=== PATIENT | female | born 1985 | race Caucasian/White ===

== ENCOUNTER 2024-03-02 09:27 | Day surgery (SDC) | payer OTHER ==
[2024-02-28 09:03] LABS: BASOPHILS # (AUTO) 0.1 X10'3 (0-0.2); BILIRUBIN,URINE NEGATIVE (Neg); CLARITY,URINE CLEAR (Clear); COLOR,URINE YELLOW (Yellow); EOSINOPHILS # (AUTO) 0.3 X10'3 (0-0.9); EOSINOPHILS % (AUTO) 4.1 % (0-6); GLUCOSE, URINE NEGATIVE (Neg); KETONES,URINE NEGATIVE (Neg); LEUKOCYTE ESTERASE ,URINE NEGATIVE (Neg); LYMPHOCYTES # (AUTO) 1.5 X10'3 (1.1-4.8); LYMPHOCYTES % (AUTO) 23.7 % (21-51); MEAN CORPUSCULAR HGB CONC 34.2 g/dL (33.0-36.5); MEAN CORPUSCULAR VOLUME 90.7 FL (78-98); MEAN PLATELET VOLUME 6.7 FL (7.4-10.4); MONOCYTES # (AUTO) 0.5 X10'3 (0-0.9); MONOCYTES % (AUTO) 7.9 % (2-12); NEUTROPHILS # (AUTO) 4.1 X10'3 (1.8-7.7); NEUTROPHILS % (AUTO) 63.3 % (42-75); NITRITES, URINE NEGATIVE (Neg); OCCULT BLOOD,URINE MODERATE (Neg); PRE OP PLATELET COUNT 371 X10'3 (140-440); PRE OP WHITE BLOOD COUNT 6.5 10'3 (4.8-10.8); PROTEIN,URINE NEGATIVE (Neg); RED CELL DISTRIBUTION WIDTH 13.4 % (11.5-14.5); UROBILINOGEN,URINE 0.2 E.U/dL (0.2-1.0)
[2024-02-28 09:15] LABS: UA COLLECTION TYPE CLN CATCH MIDSTREAM
[2024-02-28 09:16] LABS: ALBUMIN 3.8 G/DL (3.4-5.0); ALKALINE PHOSPHATASE 76 IU/L (46-116); BLOOD UREA NITROGEN 11 MG/DL (7-18); BUN/CREATININE RATIO 13.4 (10.0-20.0); CALCIUM 9.3 MG/DL (8.5-10.1); CHLORIDE 105 MMOL/L (99-107); CREATININE 0.82 MG/DL (0.40-0.90); PRE OP ALT 21 U/L (30-65); PRE OP ANION GAP 13 (8-16); PRE OP AST 13 U/L (10-37); PRE OP BILIRUB, TOTAL 0.3 MG/DL (0.0-1.0); PRE OP GLUCOSE 97 MG/DL (70-104); PRE OP POTASSIUM 4.2 MMOL/L (3.4-5.1); PRE OP SODIUM 139 MMOL/L (135-145); TOTAL CARBON DIOXIDE 21.5 MMOL/L (24-32); TOTAL PROTEIN 7.6 G/DL (6.4-8.2); WBC,URINE 0-4 /HPF (0-4); eGFR 77 ML/MIN
[2024-02-28 09:17] LABS: BACTERIA,URINE FEW /HPF (Neg); RBC,URINE 20-50 /HPF (0-2); SQUAMOUS EPITHELIAL CELL,UR FEW /LPF (FEW)
[2024-03-02] VITALS (12 sets, daily range): BP systolic 105–148; BP diastolic 67–95; PULSE 68–93; RESP 10–17; TEMP 98.1; O2SAT 96–100
[~2024-03-02] VITALS: Ht 172.7 cm; Wt 118.3 kg
[2024-03-02] MEDS: ceFAZolin 2gm in dextrose, iso 50 ML IV ONE (05:30)
[~2024-03-02 09:27] MED LIST: FLUO20CA39 PO; MULT-1249 PO
[2024-03-02] MEDS: famotidine 20mg tablet PO ONE (10:43)
[2024-03-02] MEDS: ringers solution, lacted 1,000 ML IV SCH (10:44)
[2024-03-02] MEDS ORDERED: enalaprilat dihydrate 2.5mg/2ml vial IV PRN (11:00)
[2024-03-02] MEDS ORDERED: ondansetron/PF 4mg/2ml inj IV PRN (11:00)
[2024-03-02] MEDS ORDERED: meperidine/PF 25mg/ml syringe IV PRN ×3 (11:00)
[2024-03-02] MEDS ORDERED: morphine 4 MG/ML inj SYRINge IV PRN (11:00)
[2024-03-02] MEDS ORDERED: labetalol 20mg/4ml (5mg/ml) syringe IV PRN (11:00)
[2024-03-02] MEDS ORDERED: proCHLORperazine 10 MG/2 ml inj IV PRN (11:00)
[2024-03-02] MEDS ORDERED: morphine 2 MG/ML inj. syringe IV PRN (11:00)
[2024-03-02] MEDS ORDERED: ringers solution, lacted 1,000 ML IV SCH (11:00)
[2024-03-02] MEDS ORDERED: sevoflurane 250ml liquid IH ONE (12:20)
[2024-03-02] MEDS ORDERED: fentaNYL/PF 50MCG/1 ML 2ML syringe ONE (12:28)
[2024-03-02] MEDS ORDERED: MIDAZolam 1 MG/ML 5ML VIAL ONE (12:28)
[2024-03-02] MEDS ORDERED: ROPIVAcaine 0.5% (5mg/ml) 30ml vial ONE (12:31)
[2024-03-02] MEDS ORDERED: BUPIVAcaine/PF 7.5mg/ml (0.75%) 10ml vial ONE (12:59)
[2024-03-02] MEDS ORDERED: propofol inj 20 ML IV ONE (12:59)
[2024-03-02] MEDS ORDERED: LIDOcaine 1%/PF 5ML 10 MG/ML VIAL ONE (12:59)
[2024-03-02] MEDS ORDERED: dexamethasone sod phosphate 4mg/ml inj. ONE (12:59)
== END 2024-03-02 16:34 | disposition home or self-care (01) ==
LOC: PAS 09:27
PROVIDERS: ATTEND Podiatrist Foot & Ankle Surgery
DX: M25.372 Other instability, left ankle (principal); M25.472 Effusion, left ankle; M76.72 Peroneal tendinitis, left leg; G89.18 Other acute postprocedural pain; E66.01 Morbid (severe) obesity due to excess calories; E78.5 Hyperlipidemia, unspecified; F43.10 Post-traumatic stress disorder, unspecified; F17.210 Nicotine dependence, cigarettes, uncomplicated; Z88.8 Allergy status to other drugs, medicaments and biological substances; E03.9 Hypothyroidism, unspecified; Z68.38 Body mass index [BMI] 38.0-38.9, adult; Z79.899 Other long term (current) drug therapy; Z98.890 Other specified postprocedural states
CPT/HCPCS: 27696; 28118; 29898; 36415; 64445; 64447; 80053; 81001; 82948; 85025; A6222; C1713; J0690; J1100; J2250; J2405; J2704; J2795; J3010; J3490; J7120; Z7506; Z7508; Z7512; A4618; A6253; A6449; A7000